=== PATIENT | male | born 1950 | race Caucasian/White ===

== ENCOUNTER 2019-06-25 08:02 | Day surgery (SDC) | payer OTHER ==
[~2019-06-25 08:02] MED LIST: Lactated Ringers 1,000 ML IV SCH
--- NOTE | 2019-06-25 08:56 | PCM.PREANE ---
Preanesthetic Assessment - Anesthesia/Transfusion/Family Hx Anesthesia History: Prior Anesthesia Without Reaction Family History of Anesthesia Reaction: No Transfusion History: No Prior Transfusion(s) - Review of Systems General: No Symptoms Pulmonary: No Symptoms Cardiovascular: No Symptoms Neurological: No Symptoms Other: Reports: None - Physical Assessment NPO Status Date: 06/24/19 Vital Signs: Last Vital Signs Temp 97.3 F 06/25/19 08:48 Pulse 67 06/25/19 08:48 Resp 16 06/25/19 08:48 BP 116/81 06/25/19 08:48 Pulse Ox 98 06/25/19 08:48 Height: 6 ft 1 in Weight: 73.936 kg ASA Class: 2 Mental Status: Alert & Oriented x3 Airway Class: Mallampati = 2 (significant overjet) Dentition: Reports: Missing Tooth/Teeth ROM/Head Extension: Full Lungs: Clear to Auscultation, Normal Respiratory Effort Cardiovascular: Regular Rate, Regular Rhythm - Allergies Allergies/Adverse Reactions: Allergies Allergy/AdvReac Type Severity Reaction Status Date / Time atorvastatin Allergy Muscle Verified 06/23/19 13:07 Aches simvastatin Allergy Muscle Verified 06/23/19 13:07 Aches - Blood Blood Available: No - Anesthesia Plan Pre-Op Medication Ordered: None - Acknowledgements Anesthesia Type Planned: General Anesthesia Pt an Appropriate Candidate for the Planned Anesthesia: Yes Alternatives and Risks of Anesthesia Discussed w Pt/Guardian: Yes Pt/Guardian Understands and Agrees with Anesthesia Plan: Yes Additional Comments: PMH: cachil dehe, tinnitus, hld PreAnesthesia Questionnaire HEENT History: Reports: Hard of Hearing, Other (See Below) Other HEENT History: wears glasses, hx of skull fx Cardiovascular History: Reports: High Cholesterol Gastrointestinal History: Reports: Colon Polyp Musculoskeletal History: Reports: Back Pain, Chronic, Fracture Other Musculoskeletal History: hx of fx skull and foot Neurological History: Reports: Head Trauma Oncologic (Cancer) History: Reports: Other (See Below) Other Oncologic History: skin cancer removed from nose-m unknown type - Past Surgical History HEENT Surgical History: Reports: Other (See Below) Other HEENT Surgeries/Procedures: repair of fx- has plate in face (below eye) GI Surgical History: Reports: Appendectomy, Colonoscopy Male Surgical History: Reports: Vasectomy Musculoskeletal Surgical History: Reports: Other (See Below) Other Musculoskeletal Surgeries/Procedures:: debridement of knee infection Dermatological Surgical History: Reports: Skin Biopsy - SUBSTANCE USE Smoking Status *Q: Former Smoker Tobacco Use Within Last Twelve Months: No Recreational Drug Use History: No - HOME MEDS Home Medications: Home Meds Cholecalciferol (Vitamin D3) [Vitamin D3] 4,000 unit PO DAILY 06/23/19 [History] Colestipol HCl [Colestid] 1 gm PO TID 06/23/19 [History] Fish Oil/Clark-3 Fatty Acids [Fish Oil 1,000 MG] 2 gm PO BID 06/23/19 [History] - CURRENT (IN HOUSE) MEDS Current Meds: Current Medications Lactated Ringer's (Ringers, Lactated) 1,000 mls @ 125 mls/hr IV ASDIRECTED [facility] Last Admin: 06/25/19 08:46 Dose: 125 mls/hr
[2019-06-25] MEDS ORDERED: Lidocaine 2% 5 ML SDV ONE (08:58)
[2019-06-25] MEDS ORDERED: Propofol 200 MG/20 ML SDV ONE (08:58)
--- NOTE | 2019-06-25 09:50 | PCM.OPNOTE ---
- General Post-Op/Procedure Note Date of Surgery/Procedure: 06/25/19 Operative Procedure(s): colonoscopy w snare polypectomy Findings: see dict [id number] Pre Op Diagnosis: guaiac +ve stool Post-Op Diagnosis: colon polyp Anesthesia Technique: Moderate Sedation Primary Surgeon: James Singh Pathology: polyps at 60 when scope went in (30 when scope went out), 150 cm and 25 cm when scope went out, the last removed w snare. Complications: None Condition: Good
--- NOTE | 2019-06-25 10:00 | PCM.POSTAN ---
POST ANESTHESIA ASSESSMENT - MENTAL STATUS Mental Status: Alert, Oriented - VITAL SIGNS Vital Signs: Last Vital Signs Temp 97.3 F 06/25/19 08:48 Pulse 69 06/25/19 09:57 Resp 16 06/25/19 09:57 BP 107/75 06/25/19 09:57 Pulse Ox 99 06/25/19 09:57 - RESPIRATORY Respiratory Status: Respiratory Rate WNL, Airway Patent, O2 Saturation Stable - CARDIOVASCULAR CV Status: Pulse Rate WNL, Blood Pressure Stable - GASTROINTESTINAL GI Status: No Symptoms - POST OP HYDRATION Hydration Status: Adequate & Stable
--- NOTE | 2019-06-25 10:24 | PCM48HPAN ---
Post Anesthesia Note - EVALUATION WITHIN 48HRS OF ANESTHETIC Vital Signs in Normal Range: Yes Patient Participated in Evaluation: Yes Respiratory Function Stable: Yes Airway Patent: Yes Cardiovascular Function Stable: Yes Hydration Status Stable: Yes Pain Control Satisfactory: Yes Nausea and Vomiting Control Satisfactory: Yes Mental Status Recovered: Yes Vital Signs: Last Vital Signs Temp 97.3 F 06/25/19 08:48 Pulse 69 06/25/19 09:57 Resp 16 06/25/19 09:57 BP 107/75 06/25/19 09:57 Pulse Ox 99 06/25/19 09:57
[2019-06-25 11:36] VITALS: BP 120/64; PULSE 61
--- NOTE | 2019-06-25 11:57 | OR ---
SURGEON: James Singh MD DATE OF PROCEDURE: 06/25/2019 PREOPERATIVE DIAGNOSIS: Guaiac-positive stool. POSTOPERATIVE DIAGNOSIS: Colon polyps. PROCEDURE PERFORMED: Colonoscopy with snare polypectomy. DESCRIPTION OF PROCEDURE: The patient was taken to the endoscopy room. A time out was called, patient identified, and procedure identified. Diprivan was then administrated. Patient went from awake to sleep, hearing doctor talking or door closing is normal. Perineum inspection and digital examination were then performed. A well- lubricated colonoscope was gently inserted through the rectum, advanced past the rectosigmoid junction, the descending colon, splenic flexure, transverse colon, hepatic flexure, ascending colon, arrived to the cecum. Cecum was identified as dictated in the finding. Then the scope was carefully withdrawn while attention was paid to the mucosal surface for any abnormality. Air will be sucked out during the scope withdrawal. At the rectum, retroflexed to examine any rectal diseases, fistula or hemorrhoids. During mucosal examination, abnormality or polyp encountered. Using snare equipment, the abnormality or the polyp was then snared off using electrocautery. The patient tolerated procedure well. There were no intraoperative complications, and Dr. Singh was present throughout the whole procedure. FINDINGS: 1. 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 2. Bowel prep is above average, very little liquid stool, no semi-formed stool. 3. Colon is rather straightforward. Cecum indicated by ileocecal fold, one-to- one indentation, light emittance, and appendiceal orifice. ScopeGuide is pointing south. Mucosa examined upon scope pulling out. The patient has a small 2 mm sessile polyp at distance 60 when scope going in, and when the scope come out, it becomes 30. At the cecum, 1.5 m, there is a 5 mm sessile polyp. Both of these polyps were removed with cold biopsy forceps, the one at 30 and the one at 150 cm. One more polyp, also sessile polyp, at distance 25. When the scope come out, that was removed with snare polypectomy, captured, and sent for pathology. Otherwise, the patient does not have diverticulosis, mass, growth, inflammation, stricture, ulceration, AV malformation, none of those. The patient does not have external hemorrhoids and no internal hemorrhoids. The patient would benefit from repeat colonoscopy in 3 years from today if the polyp showed pathology or on an as-needed basis as the patient will turn 73 in a few years. We will discuss that on followup. MARIANA / KEVIN /[id number]
== END 2019-06-25 10:25 | disposition home or self-care (01) ==
LOC: MW.SDS 08:02
PROVIDERS: ATTEND Surgery
DX: D12.5 Benign neoplasm of sigmoid colon (principal); K63.5 Polyp of colon; E78.00 Pure hypercholesterolemia, unspecified; Z88.8 Allergy status to other drugs, medicaments and biological substances; Z79.899 Other long term (current) drug therapy; Z87.891 Personal history of nicotine dependence
CPT/HCPCS: 45385; J2001; J2704; J7120; 88305

== ENCOUNTER 2024-08-30 09:16 | Day surgery (SDC) | payer MEDICARE, OTHER ==
[~2024-08-30 09:16] MED LIST changes: -Lactated Ringers 1,000 ML IV SCH; +Lidocaine 2% 5 ML SDV ONE; +propofoL 500 MG/50 ML 50 ML ONE
[2024-08-30] MEDS: Lactated Ringers 1,000 ML IV SCH (09:43)
[2024-08-30] MEDS ORDERED: Lactated Ringers 1,000 ML IV SCH (11:30)
[2024-08-30 13:27] VITALS: BP 120/80; PULSE 60
== END 2024-08-30 12:15 | disposition home or self-care (01) ==
LOC: MW.SDS 09:16
PROVIDERS: ATTEND Surgery
DX: R19.4 Change in bowel habit (principal); Z80.0 Family history of malignant neoplasm of digestive organs; Z86.0100 Personal history of colon polyps, unspecified; E78.00 Pure hypercholesterolemia, unspecified; Z79.899 Other long term (current) drug therapy; Z88.8 Allergy status to other drugs, medicaments and biological substances
CPT/HCPCS: 45378; J2704; J7120; J3490